=== PATIENT | female | born 1980 ===

== ENCOUNTER 2016-09-30 23:05 | Emergency (ER) | payer OTHER ==
[2016-09-30 23:15] VITALS: BP 128/74; PULSE 93; RESP 18; TEMP 99.5; O2SAT 98
--- NOTE | 2016-09-30 23:41 | ED PDOC ---
Lower Extremity Pain/Injury Time Seen by Provider: 09/30/16 23:14 Chief Complaint (Nursing): Lower Extremity Problem/Injury Chief Complaint (Provider): right foot pain History Per: Patient History/Exam Limitations: no limitations - Ankle/Foot Description Of Injury: Fell, Twisted Currently Unable To: Bear Weight, Bend Or Move Feet: 1 - pain, swelling, unable to range toes 4-5. no numbness no weakness. no ankle pain. Past Medical History Reviewed: Historical Data, Nursing Documentation, Vital Signs Vital Signs: Last Vital Signs Temp 99.5 F 09/30/16 23:12 Pulse 93 H 09/30/16 23:12 Resp 18 09/30/16 23:12 BP 128/74 09/30/16 23:12 Pulse Ox 98 09/30/16 23:12 - Medical History PMH: No Chronic Diseases - Family History Family History: States: No Known Family Hx - Home Medications Home Medications: Ambulatory Orders Medication Instructions Recorded Tramadol HCl [Ultram] 50 mg PO Q6 #15 tab 09/30/16 - Allergies Allergies/Adverse Reactions: Allergies Allergy/AdvReac Type Severity Reaction Status Date / Time Penicillins Allergy RASH Verified 09/30/16 23:22 Review of Systems ROS Statement: Except As Marked, All Systems Reviewed And Found Negative Musculoskeletal: Positive for: Foot Pain Physical Exam - Reviewed Nursing Documentation Reviewed: Yes Vital Signs Reviewed: Yes - Physical Exam Appears: Positive for: Well, Non-toxic, No Acute Distress Skin: Positive for: Normal Color, Warm, DRY Cardiovascular/Chest: Positive for: Regular Rate, Rhythm Respiratory: Positive for: CNT, Normal Breath Sounds Extremity: Positive for: Other (right foot: swellig pain to dorsum of foot lateral side . limited ROM of toes no ankle pain ) Neurologic/Psych: Positive for: Alert, Oriented - ECG O2 Sat by Pulse Oximetry: 98 - Radiology X-Ray: Interpreted by Me (displaced fracture to 5th MTP. ) - Progress ED Course And Treament: impression: sprain vs fx. Tylenol for pain and xray [id number] podiatry consulted will come to ER to see pt. Disposition - Clinical Impression Clinical Impression: Foot fracture, right - Patient ED Disposition Is Patient to be Admitted: Transfer of Care Counseled Patient/Family Regarding: Studies Performed, Diagnosis, Need For Followup, Rx Given - Disposition Referrals: John Foster DPM [Staff Provider] - Disposition: Routine/Home Disposition Time: 23:46 Condition: STABLE Prescriptions: Tramadol HCl [Ultram] 50 mg PO Q6 #15 tab Instructions: Toe Fracture (ED) Forms: [employer] (Cameroonian) Print Language: NIGERIEN Patient Signed Over To: Tomer Alfred (podiatry)
[2016-09-30] MEDS ORDERED: Oxycodone/Acetaminophen 5/325 mg Tab PO STA (23:44)
--- NOTE | 2016-09-30 23:51 | CP.PCM.PN ---
Subjective - Date & Time of Evaluation Date of Evaluation: 10/01/16 Time of Evaluation: 01:00 - Subjective Subjective: 35 year odl female seen s/p fall injury to right foot. Pt was brought promptly to [facility] ER with only local icing and elevation being applied prior to arrival. Pt reports she fell down some steps in her building and twisted her foot. Pain was immediate and she grades initial pain a "10/10" and was unable to immediately bear weight due to pain. Pain is well controlled after ER provided analgesics, pt grading current pain a 2/10. PMH: DM-2, Nasal congestion secondary to sinus surgery PSH: Nasal sinus surgery All: Penicillin Meds: Metformin 500 qd Soc hx: Denies tobaccou use, illicit drug use, and alcohol abuse. Single, Homed. Fam Hx: Unremarkable. ROS: Reviewed, negative outside of HPI. Objective - Vital Signs/Intake and Output Vital Signs (last 24 hours): Temp Pulse Resp BP Pulse Ox 99.5 F 93 H 18 128/74 98 09/30/16 23:12 09/30/16 23:12 09/30/16 23:12 09/30/16 23:12 09/30/16 23:49 - Medications Medications: Current Medications Oxycodone/Acetaminophen (Percocet 5/325 Mg Tab) 1 tab PO STAT STA Stop: 09/30/16 23:45 - Constitutional Appears: Well, Non-toxic, No Acute Distress - Extremities Exam Additional comments: Rightlower extremity focused. VASC: DP and PT pulses palpable bilaterally, graded 2/4. PEANUT GRADER to all 10 digits was <3 seconds. Temperature runs warm to cool proximal to distal. Localized non- pitting edema to dorso-lateral aspect of of forefoot. NERUO: Protective sensation grossly intact. Negative Babinski sign. DERM: No open wounds, lesion, or macerations noted, bilaterally. No ecchyosis noted at site of chief concern. MUSCK: Pedal muscle strength in all 4 major muscle groups is graded 5/5. No gross deformity noted. Guarding to inversion and eversion of forefoot. focal pain on palpation along mid-shaft and distal 5th metatarsal. - Neurological Exam Neurological Exam: Alert, Awake, Oriented x3 - Psychiatric Exam Psychiatric exam: Normal Affect, Normal Mood Assessment and Plan - Assessment and Plan (Free Text) Assessment: 35 year old female with right 5th metatarsal displaced fracture, secondary to traumatic fall. Plan: Pt seen and evaluated. Chart, labs, and vitals reviewed. Radiographs shows displaced 5th metatarsal fracture. Discussed with attending. Dr. Justino Hdz, who endorsed the following plan. Pt placed in below knee cast and to be non-weightbearing with use of axillary crutches. Discussed with patient likely need for surgical intervention due to extent of injury and level of displacement. risks, benefits and complications discussed. To be further discussed with Dr. Foster on outpatient followup. RICE therapy prescribed. Recommending Tylenol #3 for pain outpatient control. Pt to followup with Dr. Foster within 10 days time.
[2016-10-01] MEDS ORDERED: Oxycodone/Acetaminophen 5/325 mg Tab ONE (00:46)
--- NOTE | 2016-10-01 00:47 | ED PDOC ---
- ECG O2 Sat by Pulse Oximetry: 98 - Progress ED Course And Treament: 0000 Signed out to me pending podiatry evaluation 0040 Resting comfortably. R foot with moderate dorsal swelling greatest on lateral side of foot. R foot DP pulse 2+ Xrays reviewed. Podiatry in ED evaluating pt. [id number] Edinson, podiatry resident, discussed case with Dr. Myers and outpt. f/u arrangements made. Edinson casted leg in ED. Requests that pt. be prescribed Tylenol #3. Pt. searched on [employer] and indicate pt. has only been prescribed 1 narcotic prescription in the past year (4 day supply of Tylenol #3 on 06/12/2016) Disposition - Clinical Impression Clinical Impression: Foot fracture, right - POA Present On Arrival: None - Disposition Referrals: John Myers DPM [Staff Provider] - Justino Hdz DPM [Medical Doctor] - Disposition: Routine/Home Disposition Time: 01:20 Condition: STABLE Additional Instructions: FOLLOW UP WITH DR. MYERS OR DR. HDZ PREVIOUSLY SCHEDULED WITHOUT FAIL. Prescriptions: Acetaminophen with Codeine [Tylenol with Codeine #3 Tablet] 1 - 2 each PO Q6 PRN #15 tablet PRN Reason: pain Instructions: Foot Fracture in Adults (ED), Cast Care (ED), Crutch Instructions (ED) Forms: [facility] (Burundian) Print Language: [place] IS[place]
--- NOTE | 2016-10-01 14:27 | RAD ---
PROCEDURE: Right Foot Radiographs. HISTORY: foot injury COMPARISON: None. FINDINGS: BONES: Current study reveals a diagonal/oblique slightly displaced fracture of the shaft right 5th metatarsal. There is mild overlying soft tissue swelling. JOINTS: Normal. SOFT TISSUES: Normal. OTHER FINDINGS: None. IMPRESSION: Mildly displaced diagonal/oblique fracture traversing shaft of the right 5th metatarsal
== END 2016-10-01 01:23 | disposition home or self-care (01) ==
LOC: H.ER 23:05
DX: S92.901A Unspecified fracture of right foot, initial encounter for closed fracture (principal); W10.8XXA Fall (on) (from) other stairs and steps, initial encounter; Y92.008 Other place in unspecified non-institutional (private) residence as the place of occurrence of the external cause

== ENCOUNTER 2017-04-19 13:34 | Emergency (ER) | payer OTHER ==
[2017-04-19 13:56] VITALS: BP 129/76; PULSE 81; RESP 16; TEMP 97.7; O2SAT 98
--- NOTE | 2017-04-19 15:00 | ED PDOC ---
HPI: General Adult Time Seen by Provider: 04/19/17 14:02 Chief Complaint (Nursing): Abnormal Skin Integrity Chief Complaint (Provider): Left breast abscess - 2 weeks History Per: Patient History/Exam Limitations: no limitations Onset/Duration Of Symptoms: Days (x2 weeks) Current Symptoms Are (Timing): Still Present Additional Complaint(s): Leisa Zabala is a 36 year old female, with no significant past medical history, who presents to the emergency department for a left lateral breast abscess onset for x2 weeks. Patient states the pain is localized and feels like there is pressure in the area. She did not take any medication for it but applied warm compresses last night. Patient reports similar symptoms in the past which resolved on its own with no treatment. She has not seen a doctor regarding the symptoms. She denies any fever, chills or other medical complaints. PMD: None provided. Past Medical History Reviewed: Historical Data, Nursing Documentation, Vital Signs Vital Signs: Last Vital Signs Temp 97.7 F 04/19/17 13:53 Pulse 81 04/19/17 13:53 Resp 16 04/19/17 13:53 BP 129/76 04/19/17 13:53 Pulse Ox 98 04/19/17 15:00 - Medical History PMH: No Chronic Diseases - Surgical History Surgical History: No Surg Hx - Family History Family History: States: Unknown Family Hx - Social History Current smoker - smoking cessation education provided: No Alcohol: Social Drugs: Denies - Home Medications Home Medications: Ambulatory Orders Medication Instructions Recorded Acetaminophen with Codeine 1 - 2 each PO Q6 PRN #15 tablet 10/01/16 [Tylenol with Codeine #3 Tablet] Clindamycin [Cleocin] 300 mg PO QID #40 cap 04/19/17 - Allergies Allergies/Adverse Reactions: Allergies Allergy/AdvReac Type Severity Reaction Status Date / Time Penicillins Allergy RASH Verified 09/30/16 23:22 triamcinolone [From Kenalog] Allergy RASH Verified 04/19/17 13:56 Review of Systems ROS Statement: Except As Marked, All Systems Reviewed And Found Negative Constitutional: Negative for: Fever, Chills Skin: Positive for: Other (left lateral breast abscess. ) Physical Exam - Reviewed Nursing Documentation Reviewed: Yes Vital Signs Reviewed: Yes - Physical Exam Appears: Positive for: Well, Non-toxic, No Acute Distress Head Exam: Positive for: ATRAUMATIC, NORMAL INSPECTION, NORMOCEPHALIC Skin: Positive for: Normal Color, Warm, Dry Eye Exam: Positive for: Normal appearance Neck: Positive for: Painless ROM Cardiovascular/Chest: Positive for: Other (4cm abscess with localized erythema, fluctuant to left breast approximately 4 o'clock.) Extremity: Positive for: Normal ROM. Negative for: Deformity, Swelling Neurologic/Psych: Positive for: Alert - ECG O2 Sat by Pulse Oximetry: 98 (RA) Pulse Ox Interpretation: Normal Medical Decision Making Medical Decision Making: Initial Impression: Abscess Initial Plan: --Motrin tab 600 mg PO --Discussed treatment with patient. She prefers a more conservative treatment. Will apply warm compresses and take antibiotics. If there is no improvement advised her to come back and follow up for an incision and drainage. ~ Scribe Attestation: Documented by Jair Polanco, acting as a scribe for Natasha Monterroso PA-C. Provider Scribe Attestation: All medical record entries made by the Scribe were at my direction and personally dictated by me. I have reviewed the chart and agree that the record accurately reflects my personal performance of the history, physical exam, medical decision making, and the department course for this patient. I have also personally directed, reviewed, and agree with the discharge instructions and disposition. Disposition - Clinical Impression Clinical Impression: Breast abscess - Patient ED Disposition Is Patient to be Admitted: No Counseled Patient/Family Regarding: Diagnosis, Need For Followup, Rx Given - Disposition Disposition: Routine/Home Disposition Time: 15:00 Condition: GOOD Prescriptions: Clindamycin [Cleocin] 300 mg PO QID #40 cap Instructions: Common Breast Problems Forms: [employer] (Japanese)
== END 2017-04-19 15:10 | disposition home or self-care (01) ==
LOC: H.ER 13:34
DX: N61.1 Abscess of the breast and nipple (principal); Z88.0 Allergy status to penicillin

== ENCOUNTER 2017-11-16 10:25 | Emergency (ER) | payer OTHER ==
[2017-11-16 10:30] VITALS: BMI 32.5
[2017-11-16 10:31] VITALS: BP 145/81; PULSE 85; RESP 17; TEMP 99.6; O2SAT 98
[2017-11-16 11:27] LABS: BASO % 0.5 % (0.0-2.0); EOS # 0.1 K/uL (0.0-0.7); EOS % 1.2 % (0.0-4.0); HEMOGLOBIN 12.5 g/dL (12.0-16.0); LYMPH # 2.7 K/uL (1.0-4.3); LYMPH % 41.9 % (20.0-40.0); MEAN CELL VOLUME 86.9 fl (81.0-99.0); MEAN CORPUSCULAR HEMOGLOBIN 30.1 pg (27.0-31.0); MEAN CORPUSCULAR HGB CONC 34.7 g/dL (33.0-37.0); MEAN PLATELET VOLUME 7.9 fl (7.2-11.7); MONO # 0.4 K/uL (0.0-0.8); NEUT # 3.2 K/uL (1.8-7.0); NEUT % 50.4 % (50.0-75.0); NRBC % 0.1 % (0.0-0.0); RBC 4.14 Mil/uL (3.80-5.20); RED CELL DISTRIBUTION WIDTH 12.1 % (11.5-14.5); WHITE BLOOD COUNT 6.4 K/uL (4.8-10.8)
[2017-11-16 11:34] LABS: BLOOD UREA NITROGEN 8 mg/dl (7-17); GFR NON-AFRICAN AMERICAN > 60
[2017-11-16 11:44] LABS: URINE BILIRUBIN NEGATIVE (NEGATIVE); URINE BLOOD LARGE (NEGATIVE); URINE CLARITY CLOUDY (Clear); URINE COLOR RED (YELLOW); URINE GLUCOSE (UA) NEG (Normal); URINE LEUKOCYTE ESTERASE NEG Leu/uL (Negative); URINE PROTEIN 30 mg/dL (NEGATIVE); URINE UROBILINOGEN 0.2-1.0 mg/dL (0.2-1.0)
[2017-11-16] MEDS ORDERED: Naproxen 500 MG TAB PO ONE (12:33)
--- NOTE | 2017-11-16 14:04 | US ---
Date of service: 11/16/2017 HISTORY: right pelvic pain COMPARISON: None available. TECHNIQUE: Transabdominal FINDINGS: UTERUS: Measures 9.0 x 5.6 x 5.2 cm. Heterogeneous echotexture subserosal anterior fundal fibroid, 2.2 x 2.3 x 2.5 cm. Intramural/submucosal uterine body fibroid, 2.6 x 2.5 x 2.8 cm. Posterior subserosal fibroid, 1.2 x 1.9 x 1.4 cm. ENDOMETRIUM: Measures 7 mm in diameter. Unremarkable. CERVIX: No cervical abnormality identified. RIGHT OVARY: Measures 2.8 x 2.0 x 3.0 cm. No solid mass. Normal flow. LEFT OVARY: Measures 2.6 x 2.1 x 3.0 cm. No solid mass. Normal flow. FREE FLUID: No significant free fluid noted. OTHER FINDINGS: None. IMPRESSION: Three discrete uterine fibroids. Otherwise unremarkable.
--- NOTE | 2017-11-16 14:30 | ED PDOC ---
HPI: Abdomen Time Seen by Provider: 11/16/17 11:05 Chief Complaint (Nursing): Abdominal Pain History Per: Patient (37 yo lady presenting to the ER for evaluation of lower abdominal for 1 week. Patient states also had heavy vaginal bleeding 2-3 days earlier. She takes OCP for menstrual irregularities. There is no fever or chills. She hermilo dysuria. She has been told of having fibroids in the past. ) Past Medical History Reviewed: Historical Data, Nursing Documentation, Vital Signs Vital Signs: Last Vital Signs Temp 99.6 F 11/16/17 10:30 Pulse 85 11/16/17 10:30 Resp 17 11/16/17 10:30 BP 145/81 11/16/17 10:30 Pulse Ox 98 11/16/17 10:30 - Medical History PMH: No Chronic Diseases Other PMH: fbroids - Surgical History Surgical History: No Surg Hx - Family History Family History: States: Unknown Family Hx - Living Arrangements Living Arrangements: With Family - Home Medications Home Medications: Ambulatory Orders Medication Instructions Recorded Acetaminophen with Codeine 1 - 2 each PO Q6 PRN #15 tablet 10/01/16 [Tylenol with Codeine #3 Tablet] Clindamycin [Cleocin] 300 mg PO QID #40 cap 04/19/17 Naproxen [Naprosyn] 500 mg PO BID PRN #20 tablet 11/16/17 - Allergies Allergies/Adverse Reactions: Allergies Allergy/AdvReac Type Severity Reaction Status Date / Time Penicillins Allergy RASH Verified 09/30/16 23:22 triamcinolone [From Kenalog] Allergy RASH Verified 04/19/17 13:56 Review of Systems ROS Statement: Except As Marked, All Systems Reviewed And Found Negative Gastrointestinal: Positive for: Abdominal Pain. Negative for: Nausea, Vomiting, Diarrhea Genitourinary Female: Negative for: Dysuria, Incontinence Physical Exam - Reviewed Nursing Documentation Reviewed: Yes Vital Signs Reviewed: Yes - Physical Exam Appears: Positive for: Well, Non-toxic, No Acute Distress Head Exam: Positive for: ATRAUMATIC, NORMAL INSPECTION, NORMOCEPHALIC Skin: Positive for: Normal Color Eye Exam: Positive for: Normal appearance ENT: Positive for: Normal ENT Inspection Neck: Positive for: Normal Cardiovascular/Chest: Positive for: Regular Rate, Rhythm Respiratory: Positive for: CNT, Normal Breath Sounds Gastrointestinal/Abdominal: Positive for: Normal Exam, Soft Back: Positive for: Normal Inspection Extremity: Positive for: Normal ROM Neurologic/Psych: Positive for: Alert, Oriented - Laboratory Results Result Diagrams: 11/16/17 11:10 11/16/17 11:10 - ECG O2 Sat by Pulse Oximetry: 98 Disposition - Clinical Impression Clinical Impression: Fibroids - Patient ED Disposition Is Patient to be Admitted: No Doctor Will See Patient In The: Office Counseled Patient/Family Regarding: Diagnosis, Need For Followup - Disposition Referrals: Esequiel Garcia MD [Primary Care Provider] - Disposition: Routine/Home Disposition Time: 14:34 Condition: STABLE Prescriptions: Naproxen [Naprosyn] 500 mg PO BID PRN #20 tablet PRN Reason: Pain, Moderate (4-7) Instructions: Uterine Fibroids Print Language: BRITISH - POA Present On Arrival: None
== END 2017-11-16 14:56 | disposition home or self-care (01) ==
LOC: SUPCPDRO 10:25 → H.ER 10:25
DX: D25.9 Leiomyoma of uterus, unspecified (principal); Z88.0 Allergy status to penicillin

== ENCOUNTER 2018-04-30 16:03 | Emergency (ER) | payer OTHER ==
[2018-04-30 16:03] VITALS: BMI 32.5
[2018-04-30] MEDS ORDERED: Sodium Chloride 0.9% 1,000 ML IV STA (18:04)
--- NOTE | 2018-04-30 18:16 | ED PDOC ---
HPI: Female Pain Time Seen by Provider: 04/30/18 17:46 Chief Complaint (Nursing): Female Genitourinary Chief Complaint (Provider): Female Genitourinary History Per: Patient Onset/Duration Of Symptoms: Days (x1 week) Current Symptoms Are (Timing): Still Present Additional Complaint(s): Patient is a 37 y/o female with no significant PMHx who presents to the ED for evaluation of vaginal bleeding for the past week. Patient reports heavy bleeding, stating she uses about seven to eight pads a day. Patient also complains of pelvic cramping and irregular periods. Patient experienced similar bleeding in November 2017 and in this ED she was diagnosed with fibroids. At that time patient bled for a month and then it stopped spontaneously. Patient has not followed up with cornice upholsterer due to insurance problems. PCP: None Provided Past Medical History Reviewed: Historical Data, Nursing Documentation, Vital Signs Vital Signs: Last Vital Signs Temp 99.1 F 04/30/18 16:38 Pulse 119 H 04/30/18 16:38 Resp 16 04/30/18 16:38 BP 110/86 04/30/18 16:38 Pulse Ox 97 04/30/18 16:38 - Medical History Other PMH: Fibroids - Surgical History Surgical History: No Surg Hx - Family History Family History: States: Unknown Family Hx - Home Medications Home Medications: Ambulatory Orders Medication Instructions Recorded Acetaminophen with Codeine 1 - 2 each PO Q6 PRN #15 tablet 10/01/16 [Tylenol with Codeine #3 Tablet] Clindamycin [Cleocin] 300 mg PO QID #40 cap 04/19/17 Naproxen [Naprosyn] 500 mg PO BID PRN #20 tablet 11/16/17 - Allergies Allergies/Adverse Reactions: Allergies Allergy/AdvReac Type Severity Reaction Status Date / Time Penicillins Allergy RASH Verified 04/30/18 16:36 triamcinolone [From Kenalog] Allergy RASH Verified 04/30/18 16:36 Review of Systems ROS Statement: Except As Marked, All Systems Reviewed And Found Negative (as per HPI) Genitourinary Female: Positive for: Vaginal Bleeding, Pelvic Pain (cramping), Other (irregular periods) Physical Exam - Reviewed Nursing Documentation Reviewed: Yes Vital Signs Reviewed: Yes - Physical Exam Appears: Positive for: In Acute Distress (mild painful) Head Exam: Positive for: ATRAUMATIC, NORMOCEPHALIC Skin: Positive for: Warm, Dry Eye Exam: Positive for: EOMI, PERRL ENT: Positive for: Pharynx Is (clear) Neck: Positive for: Painless ROM, Supple Cardiovascular/Chest: Positive for: Tachycardia (with regular rhythm). Negative for: Murmur Respiratory: Positive for: Normal Breath Sounds. Negative for: Respiratory D istress Gastrointestinal/Abdominal: Positive for: Soft, Tenderness (suprapubic). Negative for: Mass, Distended, Guarding, Rebound Back: Positive for: Normal Inspection. Negative for: Decreased ROM Extremity: Positive for: Normal ROM. Negative for: Deformity Lymphatic: Negative for: Adenopathy Neurological/Psych: Positive for: Awake. Negative for: Motor/Sensory Deficits - Laboratory Results Result Diagrams: 04/30/18 19:36 04/30/18 19:36 - ECG O2 Sat by Pulse Oximetry: 97 (RA) Pulse Ox Interpretation: Normal Medical Decision Making Medical Decision Making: Time: 1650 Impression: Heavy Vaginal Bleeding DDx includes but not limited to fibroids, anemia, dehydration, and coagulopathy. Plan: Type and Screen CMP Urine Urine Dipstick CBC PTT Prothrombin Time IV Fluids Toradol 15 mg IVP Tylenol 975 mg PO IV Insertion Time: 2014 Labs have no clinically significant abnormalities. Patient's heart rate has improved with fluids. Discussed with patient findings and plan of care. Followup with clinic for possible initiation of oral contraceptive pills. Scribe Attestation: Documented by Jose Beckford, acting as a scribe for Gail Singh MD. Provider Scribe Attestation: All medical record entries made by the Scribe were at my direction and personally dictated by me. I have reviewed the chart and agree that the record accurately reflects my personal performance of the history, physical exam, medical decision making, and the department course for this patient. I have also personally directed, reviewed, and agree with the discharge instructions and disposition. Disposition - Clinical Impression Clinical Impression: Fibroids - Disposition Referrals: [facility] [place] [Outside] (CALL TOMORROW TO SCHEDULE APPOINTMENT BY THE END OF THE WEEK) Disposition: Routine/Home Disposition Time: 20:00 Condition: STABLE Instructions: Uterine Fibroids (DC), Heavy Periods (DC) Forms: [facility] ED School/Work Excuse
[2018-04-30 19:53] LABS: BASO # 0.1 K/uL (0.0-0.2); BASO % 0.6 % (0.0-2.0); EOS # 0.1 K/uL (0.0-0.7); HEMOGLOBIN 12.8 g/dL (12.0-16.0); LYMPH # 3.4 K/uL (1.0-4.3); MEAN CELL VOLUME 83.9 fl (81.0-99.0); MEAN CORPUSCULAR HGB CONC 33.4 g/dL (33.0-37.0); MEAN PLATELET VOLUME 8.2 fl (7.2-11.7); MONO # 0.9 K/uL (0.0-0.8); MONO % 10.2 % (0.0-10.0); NEUT # 4.5 K/uL (1.8-7.0); NEUT % 50.2 % (50.0-75.0); RBC 4.58 Mil/uL (3.80-5.20); RED CELL DISTRIBUTION WIDTH 14.2 % (11.5-14.5)
[2018-04-30 19:58] LABS: URINE BILIRUBIN NEGATIVE (NEGATIVE); URINE BLOOD LARGE (NEGATIVE); URINE CLARITY CLOUDY (Clear); URINE COLOR RED (YELLOW); URINE GLUCOSE (UA) NEG (NEGATIVE); URINE LEUKOCYTE ESTERASE NEG Leu/uL (Negative); URINE PROTEIN >=500 mg/dL (NEGATIVE); URINE UROBILINOGEN 0.2-1.0 mg/dL (0.2-1.0)
[2018-04-30 19:59] LABS: INR 1.1; PROTHROMBIN TIME 12.3 Seconds (9.8-13.1)
[2018-04-30 20:02] LABS: PARTIAL THROMBOPLASTIN TIME 27.3 Seconds (25.6-37.1)
[2018-04-30 20:09] LABS: ALB/GLOB RATIO 1.3 (1.0-2.1); ALBUMIN 4.6 g/dL (3.5-5.0); ALT/SGPT 42 U/L (9-52); AST/SGOT 24 U/L (14-36); BLOOD UREA NITROGEN 13 mg/dl (7-17); CALCIUM 9.8 mg/dL (8.4-10.2); GFR NON-AFRICAN AMERICAN > 60
[2018-04-30 21:23] VITALS: BP 120/59; PULSE 94; RESP 16; TEMP 98.5; O2SAT 99
== END 2018-04-30 21:35 | disposition home or self-care (01) ==
LOC: H.ER 16:03
DX: D25.9 Leiomyoma of uterus, unspecified (principal); Z88.0 Allergy status to penicillin
CPT/HCPCS: 80053; 81003; 85025; 85610; 85730; 87086; 96361; 96374; 99284; J1885; J7030